=== PATIENT | female | born 1945 | race Caucasian/White ===

== ENCOUNTER 2017-03-08 09:21 | Outpatient (CLI) ==
[2014-06-07 04:08] VITALS: BMI 29.5
--- NOTE | 2017-03-08 10:46 | CT ---
EXAM: CT soft tissue neck with without contrast HISTORY: Left neck mass. COMPARISON: None TECHNIQUE: Serial axial images of the neck were performed pre and post contrast. Postcontrast image s were obtained using 75 ml of Omnipaque-300 IV contrast. These were viewed in multiple planes. FINDINGS: The left neck demonstrates no visualized mass. Intracranial contents on this limited evaluation demonstrate no contrast enhancing lesion. The orbit al globes are unremarkable. The retrobulbar structures are unremarkable. Paranasal sinuses are fahad r. Mastoid air cells are clear. The parotid glands and submandibular glands are normal. The nasoph arynx and oropharynx are normal. Airway is patent. Thyroid is unremarkable. There are few scattere d nonenlarged lymph nodes in the cervical soft tissues of the neck. The lung apices are clear. The aorta and branching arteries are normal. The osseous structures demonstrate degenerative disease of the spine. IMPRESSION: 1. No visualized left neck mass. 2. Multiple scattered lymph nodes are nonpathologically enlarged. 3. Degenerative disease of the cervical spine.
== END 2017-03-08 09:22 | disposition home or self-care (01) ==
LOC: RAD 09:21
PROVIDERS: ATTEND Family Medicine
DX: R22.1 Localized swelling, mass and lump, neck (principal)

== ENCOUNTER 2017-04-25 10:22 | Outpatient (CLI) ==
[2014-06-07 04:08] VITALS: BMI 29.5
--- NOTE | 2017-04-26 08:51 | MAMMO ---
EXAM: Digital screening mammogram with tomosynthesis HISTORY: Screening COMPARISON: 05/11/2015 FINDINGS: Digital MLO and CC views of the right and left breast were performed. Tomosynthesis was p erformed. Computer aided detection was utilized. There are scattered fibroglandular densities. Ther e is no evidence for mass, asymmetry, distortion, or suspicious calcifications in either breast. IMPRESSION: 1. No evidence of malignancy in the right or left breast. 2. Annual screening mammogram is recommended in one year. BIRADS category 1, negative examination
== END 2017-04-25 10:23 | disposition home or self-care (01) ==
LOC: RAD 10:22
PROVIDERS: ATTEND Family Medicine
DX: Z12.31 Encounter for screening mammogram for malignant neoplasm of breast (principal)
CPT/HCPCS: 77067

== ENCOUNTER 2017-09-23 15:34 | Outpatient (CLI) ==
[2014-06-07 04:08] VITALS: BMI 29.5
--- NOTE | 2017-09-23 16:29 | DI ---
EXAM: Two views of the chest. History: Cough. Comparison: Chest radiograph 08/21/2012 Findings: Heart size is normal. No focal consolidation. No appreciable pleural fluid and no pneumo thorax. No acute osseous abnormalities. Subsegmental atelectasis again seen within the lingula. Impression: No acute cardiopulmonary process.
== END 2017-09-23 15:35 | disposition home or self-care (01) ==
LOC: RAD 15:34
PROVIDERS: ATTEND Family Medicine
DX: J40 Bronchitis, not specified as acute or chronic (principal)

== ENCOUNTER 2018-02-24 14:01 | Outpatient (CLI) ==
[2014-06-07 04:08] VITALS: BMI 29.5
--- NOTE | 2018-02-24 15:36 | CT ---
EXAM: CT of the abdomen pelvis without contrast History: Lower abdominal pain, history appendectomy. Comparison: CT abdomen and pelvis 04/10/2012 Technique: Multiplanar CT images through the abdomen pelvis were obtained without the administration of IV contrast Findings: Subsegmental atelectasis seen within the lower lungs. Status post cholecystectomy. No focal liver or splenic lesions. No renal stones and no hydronephros is. Stomach is mild to moderately distended with fluid and debris. There is some high density mater ial seen within the stomach lumen. No bowel obstruction. Colonic diverticulosis with minimal adjace nt sigmoid inflammation. Bladder is not well distended. No bladder wall thickening. Uterus is not seen. No perirectal inflammation. No free air and no ascites. Impression: 1. Mild sigmoid diverticulitis. No abscess and no free air. 2. Stomach is moderately distended with fluid and debris. There is some high density material seen in the stomach which is probably related to ingested food material. A component of intraluminal gastr ic hemorrhage cannot be excluded.
== END 2018-02-24 14:02 | disposition home or self-care (01) ==
LOC: RAD 14:01
PROVIDERS: ATTEND Family Medicine
DX: R10.30 Lower abdominal pain, unspecified (principal)

== ENCOUNTER 2018-05-26 09:48 | Day surgery (SDC) ==
[2014-06-07 04:08] VITALS: BMI 29.5
[2018-05-26] MEDS ORDERED: LIDOCAINE 1% 20 ML MDV ID STA (10:17)
[2018-05-26] MEDS ORDERED: DIPRIVAN 20 ML VIAL IVP ONE (10:30)
[2018-05-26] MEDS ORDERED: VERSED ONE (10:30)
[2018-05-26 15:38] VITALS: BP 132/56
--- NOTE | 2018-05-27 09:09 | OP ---
PROCEDURE: COLONOSCOPY TO THE CECUM WITH SNARE POLYPECTOMY. ENDOSCOPIST: Doris GUILLEN M.D. INDICATION: DIVERTICULITIS INSTRUMENT: [id number]. MEDICATION: PER ANESTHESIA. PROCEDURE: The patient was positioned for colonoscopy. The digital rectal exam was negative. The colonoscope was inserted through the anus and advanced to the cecum. The cecum was identified using the ileocecal valve and the appendiceal orifice as landmarks. The scope was slowly withdrawn through an adequately prepped colon. Norton Bowel Prep score was 9. Small polyps removed in the ascending colon and 15cm using snare cautery. Extensive left sided diverticular disease. Retroflex exam otherwise normal. Withdraw time 8 minutes and 34 seconds. PLAN: 1. Repeat colonoscopy in 5 years. CC: Dr. Koehler. [facility]
== END 2018-05-26 12:10 | disposition home or self-care (01) ==
LOC: SURG 09:48
PROVIDERS: ATTEND Internal Medicine Gastroenterology
DX: K57.90 Diverticulosis of intestine, part unspecified, without perforation or abscess without bleeding (principal); K63.5 Polyp of colon; D12.2 Benign neoplasm of ascending colon; D12.7 Benign neoplasm of rectosigmoid junction